=== PATIENT | male | born 1995 | race Caucasian/White ===

== ENCOUNTER 2018-10-25 01:36 | Emergency (ER) | payer MEDICAID, OTHER ==
[~2018-10-25] VITALS: Ht 185.4 cm; Wt 59.0 kg
[2018-10-25] MEDS ORDERED: IBUPROFEN 400 MG TABLET ONE (02:21)
[2018-10-25] MEDS ORDERED: IBUPROFEN 400 MG TABLET PO ONE (02:30)
[2018-10-25] MEDS ORDERED: TRAM50TA2 PO (03:28)
[2018-10-25] MEDS ORDERED: [UNRECOGNIZED DRUG - CODE] EACHEYE (03:28)
[2018-10-25] MEDS ORDERED: ONDA8TAB6 PO (03:28)
[2018-10-25] MEDS ORDERED: TURM1CAP2 PO (03:28)
[2018-10-25] MEDS ORDERED: MEMA10TA PO (03:28)
[2018-10-25] MEDS ORDERED: CARV3.122 PO (03:28)
[2018-10-25] MEDS ORDERED: DEXA4TAB PO (03:28)
[2018-10-25] MEDS ORDERED: FLUT9.9S NS (03:28)
[2018-10-25] MEDS ORDERED: FOLI1TAB16 PO (03:28)
[2018-10-25] MEDS ORDERED: LEVO50TA8 PO (03:28)
[2018-10-25] MEDS ORDERED: AMLO5TAB9 PO (03:28)
[2018-10-25] MEDS ORDERED: MAGN400C PO (03:28)
[2018-10-25] MEDS ORDERED: ESOM40CA PO (03:28)
[2018-10-25] MEDS ORDERED: LINA145C PO (03:28)
[2018-10-25] MEDS ORDERED: CARB32DR OP (03:28)
[2018-10-25 06:07] VITALS: BP 114/70
== END 2018-10-25 06:00 | disposition home or self-care (01) ==
LOC: ER 01:38
DX: M79.671 Pain in right foot (principal); M25.572 Pain in left ankle and joints of left foot; Z79.899 Other long term (current) drug therapy
CPT/HCPCS: 73630; 73650; 73700; A4663

== ENCOUNTER 2021-07-18 15:31 | Emergency (ER) | payer MEDICAID, OTHER ==
[~2021-07-18] VITALS: Ht 185.4 cm; Wt 73.5 kg
[~2021-07-18 15:31] MED LIST: AMLO-212 PO; CARB32DR OP; CARV3.122 PO; DEXA4TAB PO; ESOM40CA PO; FLUT16SP16 NS; FOLI1TAB94 PO; LEVO50TA8 PO; LINA145C PO; MAGN400C PO; MEMA10TA PO; ONDA8TAB6 PO; TRAM50TA2 PO; TURM1CAP2 PO; [UNRECOGNIZED DRUG - CODE] EACHEYE
--- NOTE | 2021-07-18 16:15 | NUR ---
Dr Fernandez at the bedside for MSE.
[2021-07-18 16:33] VITALS: BP 134/70
--- NOTE | 2021-07-18 16:33 | NUR ---
Patient discharged to home in stable condition. Written and verbal after care instructions given. Patient verbalizes understanding of instructions. Stressed follow up or return to ER for worsening s/s.
== END 2021-07-18 16:49 | disposition home or self-care (01) ==
LOC: ER 15:35
DX: U07.1 COVID-19 (principal); R43.8 Other disturbances of smell and taste
CPT/HCPCS: A4663

== ENCOUNTER 2022-09-23 17:43 | Emergency (ER) | payer OTHER ==
--- NOTE | 2022-09-23 18:36 | NUR ---
Pt c/o pain in the Lt eye due to glass dust. Pt left ER w/o being triaged stating,"i will see my Optemologist tommorrow."
== END 2022-09-23 18:38 | disposition left against medical advice (07) ==
LOC: ER 17:47
DX: Z53.21 Procedure and treatment not carried out due to patient leaving prior to being seen by health care provider (principal); Z79.899 Other long term (current) drug therapy
CPT/HCPCS: A4663

== ENCOUNTER 2023-02-26 14:54 | Emergency (ER) | payer OTHER ==
[~2023-02-26] VITALS: Ht 185.4 cm; Wt 77.1 kg
[2023-02-26 15:45] VITALS: O2SAT 98
== END 2023-02-26 17:58 | disposition home or self-care (01) ==
LOC: ER 14:54
DX: S16.1XXA Strain of muscle, fascia and tendon at neck level, initial encounter (principal); Z79.899 Other long term (current) drug therapy; X58.XXXA Exposure to other specified factors, initial encounter; Y93.89 Activity, other specified; Y92.89 Other specified places as the place of occurrence of the external cause; Y99.8 Other external cause status
CPT/HCPCS: 72125; A4663